=== PATIENT | female | born 1985 | race Caucasian/White ===

== ENCOUNTER 2017-10-16 14:36 | Emergency (ER) | payer BC, OTHER ==
[2017-10-16] MEDS: ACETAMINOPHEN 325 MG TAB PO (15:17)
[2017-10-16] MEDS: IBUPROFEN 200 MG TAB PO (15:18)
[2017-10-16 15:30] LABS: URINE BLOOD (Dip) POC Trace-lysed (NEGATIVE); URINE GLUCOSE (Dip) POC Negative (NEGATIVE); URINE KETONES (Dip) POC Negative (NEGATIVE); URINE LEUKOCYTE EST (Dip) POC Negative (NEGATIVE); URINE NITRITE (Dip) POC Negative (NEGATIVE); URINE TOTAL PROTEIN POC Negative (NEGATIVE)
== END 2017-10-16 17:07 | disposition home or self-care (01) ==
LOC: FTE 14:36
DX: M54.2 Cervicalgia (principal); R07.89 Other chest pain
CPT/HCPCS: 71046; 72040; 81003; 81025; 99284-25